=== PATIENT | female | born 1975 | race Caucasian/White ===

== ENCOUNTER 2018-12-31 19:10 | Emergency (ER) | payer BC, OTHER ==
[~2018-12-31] VITALS: Ht 167.6 cm; Wt 90.7 kg
--- NOTE | 2018-12-31 19:20 | ED.ADGEN ---
Adult General Chief Complaint Chief Complaint ".. I was [place] [employer] and I fell off the dock .. lander really hard on this Rt. arm..."..This was yesterday... but it is all purple to day.. and I wanted to see if I broke anything..." HPI HPI Patient is a 43 year old female who presents with above hx and complaints fall off a dock . Patient has a large amount of ecchymosis and swelling to right upper arm. Distal neurovascular right hand is equal to left hand. Patient denies any history of coagulopathy. Patient has some tenderness with flexion and extension and movement in right shoulder and right elbow. Patient denies other injury. Patient is allergic to NSAIDs. Patient follows [facility] for care. Review of Systems Review of Systems Constitutional: Denies fever or chills [] Eyes: Denies change in visual acuity, redness, or eye pain [] HENT: Denies nasal congestion or sore throat [] Respiratory: Denies cough or shortness of breath [] Cardiovascular: No additional information not addressed in HPI [] GI: Denies abdominal pain, nausea, vomiting, bloody stools or diarrhea [] : Denies dysuria or hematuria [] Musculoskeletal: Denies back pain or joint pain []except for complaints of right arm pain as per history of present illness Integument: Denies rash or skin lesions [] Neurologic: Denies headache, focal weakness or sensory changes [] Endocrine: Denies polyuria or polydipsia [] All other systems were reviewed and found to be within normal limits, except as documented in this note. Family History Family History Noncontributory Current Medications Current Medications Current Medications Medications (Trade) Dose Ordered Sig/Mercedes Start Time Stop Time Status Last Admin Dose Admin Hydrocodone Bitartrate/ Ibuprofen (Vicoprofen 7.5-200) 1 tab STK-MED ONCE 12/31/18 20:24 12/31/18 21:08 DC Oxycodone/ Acetaminophen (Percocet 5/325) 2 tab 1X ONCE 12/31/18 21:15 12/31/18 21:19 DC Allergies Allergies Allergies Coded Allergies Type Severity Reaction Last Updated Verified NSAIDS (Non-Steroidal Anti-Inflamma Allergy Unknown 12/31/18 Yes Physical Exam Physical Exam Constitutional: Moderately acute distress, non-toxic appearance. [] HENT: Normocephalic, atraumatic, bilateral external ears normal, oropharynx moist, no oral exudates, nose normal. [] Eyes: PERRLA, EOMI, conjunctiva normal, no discharge. [] Neck: Normal range of motion, no tenderness, supple, no stridor. [] Cardiovascular:Heart rate regular rhythm, no murmur [] Lungs & Thorax: Bilateral breath sounds equal at apex auscultation [] Abdomen: Bowel sounds normal, soft, no tenderness, no masses, no pulsatile masses. [] Skin: Warm, dry, no erythema, no rash. [] Back: No tenderness, no CVA tenderness. [] Extremities: No tenderness, no cyanosis, no clubbing, ROM intact, no edema. [] Except right arm as per history of present illness exam Neurologic: Alert and oriented X 3, normal motor function, normal sensory function, no focal deficits noted. [] Psychologic: Affect anxious, judgement normal, mood normal. [] Current Patient Data Vital Signs Vital Signs Date Time Temp Pulse Resp B/P (MAP) Pulse Ox O2 Delivery O2 Flow Rate FiO2 12/31/18 21:56 18 98 Room Air 12/31/18 19:10 98.6 87 EKG EKG [] Radiology/Procedures Radiology/Procedures [][place] [address] IMAGING REPORT Signed PATIENT: UNIQUE JOHNSON ACCOUNT: [id number] : 1975 LOCATION: ER AGE: 43 SEX: F EXAM STATUS: REG ER ORD. PHYSICIAN: LEONOR MELTON MD REASON: Fall 12/30/18, right elbow pain PROCEDURE: ELBOW RIGHT 3V Exam: Right humerus 2 views, right forearm 2 views right elbow 3 views INDICATION: Fall TECHNIQUE: Frontal and lateral views of the right humerus and right forearm. Frontal, lateral and oblique views of the right elbow. Comparisons: None FINDINGS: Humerus: Bone mineralization and development are normal. No acute or healed fractures. Soft tissues are unremarkable. Joint spaces are well-maintained. Elbow: Bone mineralization and development are normal. No acute fractures. Soft tissues are unremarkable. Joint spaces are well-maintained. Right forearm: Bone mineralization is normal. No acute fractures. Soft tissues are unremarkable. Joint spaces are well-maintained. IMPRESSION: 1. No acute osseous abnormality of the right humerus. 2. No acute osseous abnormality of the right elbow. 3. No acute osseous abnormality of the right forearm. Electronically signed by: Rekha Funk MD (12/31/2018 8:57 PM) [facility] [place] DICTATED AND SIGNED BY: REKHA FUNK MD DATE: 12/31/182056 CC: LEONOR MELTON MD; BRIAN AGOSTO ~ Course & Med Decision Making Course & Med Decision Making Pertinent Labs and Imaging studies reviewed. (See chart for details). Ice packs as needed. Tylenol as needed for pain. Follow-up primary care. Return if any concerns. [] Final Impression Final Impression 1. Contusion and sprain right arm, elbow[] Dragon Disclaimer Dragon Disclaimer This electronic medical record was generated, in whole or in part, using a voice recognition dictation system. Dragon Disclaimer This chart was dictated in whole or in part using Voice Recognition software in a busy, high-work load, and often noisy Emergency Department environment. It may contain unintended and wholly unrecognized errors or omissions. LEONOR MELTON MD Dec 31, 2018 19:20
[2018-12-31] MEDS ORDERED: HYDROcodon/IBUPROFEN 7.5/200MG 1 TAB TABLET PO ONE (20:15)
[2018-12-31] MEDS ORDERED: HYDROcodon/IBUPROFEN 7.5/200MG 1 TAB TABLET ONE (20:24)
--- NOTE | 2018-12-31 20:59 | RAD ---
Exam: Right humerus 2 views, right forearm 2 views right elbow 3 views INDICATION: Fall TECHNIQUE: Frontal and lateral views of the right humerus and right forearm. Frontal, lateral and oblique views of the right elbow. Comparisons: None FINDINGS: Humerus: Bone mineralization and development are normal. No acute or healed fractures. Soft tissues are unremarkable. Joint spaces are well-maintained. Elbow: Bone mineralization and development are normal. No acute fractures. Soft tissues are unremarkable. Joint spaces are well-maintained. Right forearm: Bone mineralization is normal. No acute fractures. Soft tissues are unremarkable. Joint spaces are well-maintained. IMPRESSION: 1. No acute osseous abnormality of the right humerus. 2. No acute osseous abnormality of the right elbow. 3. No acute osseous abnormality of the right forearm. Electronically signed by: Rekha Pacheco MD (12/31/2018 8:57 PM) [facility]
[2018-12-31] MEDS ORDERED: OXYC1TAB15 PO (21:10)
[2018-12-31 21:15] VITALS: BP 126/67
[2018-12-31] MEDS ORDERED: oxyCODONE/APAP 5/325 1 TAB TABLET PO ONE ×2 (21:15→21:30)
== END 2018-12-31 21:58 | disposition home or self-care (01) ==
LOC: ER 19:10
DX: S53.401A Unspecified sprain of right elbow, initial encounter (principal); Z88.6 Allergy status to analgesic agent; W18.09XA Striking against other object with subsequent fall, initial encounter; Y93.89 Activity, other specified; Y92.828 Other wilderness area as the place of occurrence of the external cause; Y99.8 Other external cause status
CPT/HCPCS: 73060; 73080; 73090; 99284